=== PATIENT | female | born 1960 | race Caucasian/White ===

== ENCOUNTER 2020-08-15 14:12 | Inpatient (IN) | payer MEDICAID, SELFPAY ==
[2020-08-15 14:18] VITALS: BP 137/81; PULSE 90; RESP 16; TEMP 37.3; O2SAT 100; BMI 18.5
[2020-08-15 15:54] VITALS: BP 144/81; PULSE 78; RESP 19; TEMP 37.2; O2SAT 97
[2020-08-15] MEDS: 0.9 % Sodium Chloride 1,000 ML 999 ML IVCONT (16:13)
[2020-08-15] MEDS: Lidocaine HCl Viscous 2 % 15 ML SOLUTION MUCOUS MEM (16:20)
[2020-08-15] MEDS: Famotidine/PF 20 MG/2 ML VIAL IVPUSH (16:20)
[2020-08-15] MEDS: PHENobarb/Hyoscy/Atropine/Scop 10 ML ELIXIR PO (16:21)
[2020-08-15 16:22] LABS: MANUAL DIFF FLAG NO
[2020-08-15 16:26] LABS: Basophils Absolute Auto 0.1 X10*3/uL (0.0-0.2); Basophils Percent Auto 0.7 % (0-2); Eosinophils Absolute Auto 0.2 X10*3/uL (0.0-0.4); Eosinophils Percent Auto 1.7 % (0-4); Hematocrit 42.7 % (37-47); Hemoglobin 14.1 g/dl (12.0-16.0); Imm Gran Abs Auto 0.03 X10*3/uL (0.00-0.03); Imm Gran Pct Auto 0.2 % (0.0-0.4); Lymphocytes Absolute Auto 3.1 X10*3/uL (1.2-4.9); Lymphocytes Percent Auto 24.2 % (20-40); Mean Corpuscular Hemoglobin 30.1 pg (27.0-33.0); Mean Platelet Volume 10.8 fL (9.4-12.3); Monocytes Absolute Auto 0.7 X10*3/uL (0.1-1.2); Monocytes Percent Auto 5.3 % (2-11); Neutrophils Absolute Auto 8.6 X10*3/uL (2.0-8.3); Neutrophils Percent Auto 67.9 % (45-73); Platelet Count 491 X10*3/uL (160-400); Red Blood Count 4.69 X10*6/uL (4.20-5.50); Red Cell Distribution Width 14.6 % (11.0-16.0); White Blood Count 12.7 X10*3/uL (4.8-10.8)
[2020-08-15 16:29] LABS: Prothrombin Time 12.1 SEC (10.8-13.0)
[2020-08-15 16:53] LABS: Alanine Aminotransferase 8 U/L (0-31); Albumin Level 4.2 g/dL (3.5-5.0); Alkaline Phosphatase 85 U/L (39-117); Anion Gap 14 (12-20); Aspartate Amino Transferase 11 U/L (5-31); Bilirubin Direct < 0.2 mg/dL (0.0-0.5); Bilirubin Total 0.6 mg/dL (0.0-1.0); Blood Urea Nitrogen 10 mg/dL (9-16); Calcium 9.4 mg/dL (8.4-10.2); Carbon Dioxide 27 mmol/L (22-29); Chloride 103 mmol/L (96-108); Creatinine Clr Calc Pharmacy 71.7; Estimated Glomerular Filt Rate > 60; Glucose Random 103 mg/dL (60-115); Potassium 4.3 mmol/l (3.3-5.1); Sodium 140 mmol/L (135-145)
[2020-08-15 16:56] LABS: Troponin-I High Sensitivity < 3.5 ng/L (<3.5-17.0)
[2020-08-15 17:08] LABS: Lipase 379 U/L (8-78)
--- NOTE | 2020-08-15 17:39 | CT_ITS ---
EXAMINATION: CT ABDOMEN AND PELVIS WITH CONTRAST CLINICAL INFORMATION: Pancreatitis COMPARISON: CT abdomen pelvis dated 05/26/2012 TECHNIQUE: Multidetector volumetric images were obtained from the superior aspect of the liver through the pubic symphysis following administration 85 mL ofOmnipaque 350 intravenous contrast. Sagittal and coronal reformatted images were obtained on the technologist's workstation. Oral contrast: No This CT examination was performed using dose optimization techniques as appropriate, variously including the following: *Automated exposure control *Adjustment of mA and/or kV according to patient size (this includes techniques or standardized protocols for targeted exams where dose is matched to indication/reason for exam; i.e. extremities or head) *Use of iterative reconstruction technique DLP: 3 L5 mGy-cm FINDINGS: LUNG BASES: The visualized lung bases are unremarkable. LIVER, GALLBLADDER, AND BILIARY TREE: The liver is normal in size, shape, and attenuation. A small cyst is noted centrally. No focal solid suspicious hepatic lesion or biliary ductal dilatation is present. The gallbladder is unremarkable with no evidence of radiopaque gallstones, gallbladder wall thickening, or obvious pericholecystic inflammatory changes. PANCREAS: Pancreas is edematous and there is peripancreatic fluid in the anterior pararenal space centered near the pancreatic tail. Small amount of fluid is present between the pancreas and the posterior stomach wall with some possible mucosal thickening. No drainable collection or pseudocyst is seen. Findings are compatible with acute pancreatitis. The pancreatic duct is dilated with a maximum of 6.3 mm distally, the duct is tortuous. In the head of the pancreas the duct measures 3.3 mm. An obstructing mass or stone is not seen. SPLEEN: Unremarkable. ADRENAL GLANDS: Unremarkable. KIDNEYS AND URETERS: The kidneys are normal in size, shape, and attenuation. No hydronephrosis, hydroureter, or calculi seen. Tiny renal hypodensities are seen most likely cysts but they're indeterminate because of their small size. No perinephric stranding. BLADDER: Empty and cannot be adequately evaluated. GASTROINTESTINAL TRACT: The small and large bowel are unremarkable. The appendix is unremarkable. ABDOMINAL WALL: No significant hernia is appreciated. LYMPH NODES: Some small retroperitoneal nodes are present but there is no adenopathy. VASCULAR: Calcific atherosclerotic changes present in the infrarenal aorta without aneurysm. PELVIC VISCERA: A retroverted enlarged uterine fibroid is present with dominant 5.4 cm fibroid with diffuse calcification at the fundus. No gross free fluid is present in the pelvis. An abnormal adnexal mass is not present. OSSEOUS STRUCTURES: Unremarkable. CT/CT abdomen pelvis w con IMPRESSION: 1. Acute pancreatitis with edema dilated pancreatic duct and peripancreatic fluid. A drainable collection or pseudocyst is not present. 2. Retroverted uterus with large calcified fundal fibroid 3. Tiny renal hypodensities statistically cysts.
[2020-08-15] MEDS: iohexoL 350 MG/ML 100 ML INFUS..BTL IV (17:55)
--- NOTE | 2020-08-15 18:13 | ECG_ITS ---
Test Reason : UPPER ABDOMINL PAIN Blood Pressure : / mmHG Vent. Rate : 069 BPM Atrial Rate : 069 BPM P-R Int : 156 ms QRS Dur : 076 ms QT Int : 392 ms P-R-T Axes : 082 083 079 degrees QTc Int : 420 ms Normal sinus rhythm Possible Left atrial enlargement Borderline ECG When compared with ECG of 26-AUG-2011 09:18, No significant changes seen Referred By: Gabe Walls Electronically Signed By:LM HODGSON MD
--- NOTE | 2020-08-15 18:13 | ED.ABDPAIN ---
HPI - Abdominal Pain General Chief Complaint: Abdominal Pain Stated Complaint: abd pain Time Seen by Provider: 08/15/20 14:32 Source: patient Mode of arrival: ambulatory Limitations: no limitations History of Present Illness HPI narrative: Patient presents to ED for abdominal pain since yesterday with nausea and vomiting. Patient states abdominal pain has started to improve and her main complaint is nausea. Patient states pain is in the mid gastric area. Patient denies any fever, chills, dysuria, hematuria, flank pain, chest pain, shortness of breath. Related Data Allergies Allergy/AdvReac Type Severity Reaction Status Date / Time No Known Allergies Allergy Verified 08/15/20 14:17 Review of Systems Review of Systems Yes all other systems are reviewed and are negative Constitutional: Reports as per HPI, Reports no additional constitutional complaints and Denies snoring Eyes: Reports as per HPI and Reports no additional eye complaints Reports system reviewed and no additional complaints, except as documented and Reports as per HPI Cardiovascular: Reports as per HPI, Denies chest pain, Denies chest pain at rest, Denies chest pain with activity, Denies Epigastric Pain, Denies rapid heart rate, Denies dyspnea, Denies dyspnea on exertion, Denies orthopnea and Denies paroxysmal nocturnal dyspnea Respiratory: Reports as per HPI, Reports no additional respiratory complaints, Denies change in phlegm color, Denies chest congestion, Denies cough, Denies excessive phlegm production, Denies pain on inspiration, Denies pain with cough, Denies dyspnea, Denies dyspnea on exertion, Denies snoring, Denies stridor and Denies wheezing Gastrointestinal: Reports as per HPI, Reports no additional gastrointestinal complaints, Reports abdominal pain ( mid gastric), Denies belching, Denies melena, Denies hematochezia, Denies tenesmus, Denies change in stool character, Denies coffee ground emesis, Denies constipation, Denies GI cramping, Denies diarrhea, Reports nausea and Reports vomiting Genitourinary: Denies urinary frequency, Denies difficulty voiding, Denies post void dribbling, Denies pelvic pain, Denies urinary incontinence, Denies urinary hesitancy, Denies urinary urgency, Denies vaginal discharge and Denies vaginal dryness Musculoskeletal: Reports no additional musculoskeletal complaints Reports system reviewed and no additional complaints, except as documented and Reports as per HPI Psychiatric: Reports no additional psychiatric complaints and Reports as per HPI Allergic/Immunologic: Denies wheezing Physical Exam Vital Signs: Vital Signs: Vital Signs Temp Pulse Resp BP Pulse Ox 08/15/20 15:54 99 F 78 19 144/81 H 97 08/15/20 14:18 99.1 F 90 16 137/81 100 Body Mass Index 18.5 Const: General: cooperative, healthy appearing, comfortable, no acute distress, well developed, alert and awake Orientation/consciousness: oriented to person, oriented to place, oriented to time and patient oriented x3 HENMT: Head: Yes normal to inspection and Yes No palpable skull fracture present Eyes: General: appearance normal, both eyes and all related structures Neck: Neck: Yes normal visual inspection, Yes full ROM, Yes no lymphadenopathy, Yes no meningeal signs, No positive Brudzinski's sign and No positive Kernig's sign Chest: Chest palpation & inspection: normal inspection of the chest, normal palpation of entire chest wall and no localized rib tenderness Resp: Effort & Inspection: normal respiratory effort, able to speak in complete sentences, normal respiratory pattern, no audible wheezes, respiratory effort not decreased, no grunting, not labored, no nasal flaring, no paradoxical thoraco-abdom movements, no pursed lip breathing and no segmental paradox chest wall movement Auscultation: clear to auscultation bilaterally, no crackles, no rales, no rhonchi and no wheezes Percussion: percussion normal Cardio: Jugular venous distension: no JVD Heart sounds: S1 normal heart sound present and S2 normal heart sound present GI: Inspection: Yes normal to inspection and No abdominal wall ecchymosis Palpation (GI): Soft to palpation, Tenderness to palpation present (GI) ( mid gastric), no guarding and not rigid : General: No CVA tenderness and Yes no CVA tenderness Back/Spine/Pelvis: Back: no CVA tenderness, No CVA tenderness and No back tenderness Skin: General skin exam: no rashes or lesions noted Neuro: General: oriented to person, oriented to place, oriented to time, patient oriented x3, gait normal, no meningeal signs and CN's II-XI intact bilaterally Cranial nerves: Yes CN's II-XII intact bilaterally Extrem: General: Yes normal to inspection and Yes full ROM Psych: Appearance: grossly normal and well kempt Course Course Course Narrative: history and physical exam indicate pancreatitis exacerbation. But due to patient's age she will have troponin EKG. Reevaluation(s) Reevaluation #1: Patient's troponin is normal. Lipase came back slightly elevated. Patient is sent for abdominal CT scan to rule out gallstone pancreatitis. Patient states pain is improving, but just nauseous. Case signed out to [employer] Adrian to follow-up EKG and CT scan results. Time: 18:18 MDM - Abdominal Pain MDM Narrative Medical decision making narrative: Pancreatitis Lab Data Result diagrams: 08/15/20 16:10 08/15/20 16:10 Labs: Lab Results 08/15/20 08/15/20 08/15/20 Range/Units 16:10 16:10 16:10 WBC 12.7 H (4.8-10.8) X10*3/uL RBC 4.69 (4.20-5.50) X10*6/uL Hgb 14.1 (12.0-16.0) g/dl Hct 42.7 (37-47) % MCV 91.0 (80-98) fL MCH 30.1 (27.0-33.0) pg MCHC 33.0 (31.0-35.0) g/dl RDW 14.6 (11.0-16.0) % Plt Count 491 H (160-400) X10*3/uL MPV 10.8 (9.4-12.3) fL Immature Gran % (Auto) 0.2 (0.0-0.4) % Neut % (Auto) 67.9 (45-73) % Lymph % (Auto) 24.2 (20-40) % Benson % (Auto) 5.3 (2-11) % Eos % (Auto) 1.7 (0-4) % Baso % (Auto) 0.7 (0-2) % Lymph # (Auto) 3.1 (1.2-4.9) X10*3/uL Benson # (Auto) 0.7 (0.1-1.2) X10*3/uL Eos # (Auto) 0.2 (0.0-0.4) X10*3/uL Baso # (Auto) 0.1 (0.0-0.2) X10*3/uL Abs Immat Gran (auto) 0.03 (0.00-0.03) X10*3/uL Absolute Neuts (auto) 8.6 H (2.0-8.3) X10*3/uL Absolute Nucleated RBC 0.000 (0.0-0.012) X10*3/uL Nucleated RBC % (auto) 0.0 (0.0-0.2) /100WBC PT 12.1 (10.8-13.0) SEC INR 1.0 (0.9-1.1) Sodium 140 (135-145) mmol/L Potassium 4.3 (3.3-5.1) mmol/l Chloride 103 (96-108) mmol/L Carbon Dioxide 27 (22-29) mmol/L Anion Gap 14 (12-20) BUN 10 (9-16) mg/dL Creatinine 0.56 (0.5-1.4) mg/dL Estim Creat Clear Calc 71.7 Estimated GFR > 60 Random Glucose 103 (60-115) mg/dL Calcium 9.4 (8.4-10.2) mg/dL Total Bilirubin 0.6 (0.0-1.0) mg/dL Direct Bilirubin < 0.2 (0.0-0.5) mg/dL AST 11 (5-31) U/L ALT 8 (0-31) U/L Alkaline Phosphatase 85 (39-117) U/L Troponin I High Sens (<3.5-17.0) ng/L Total Protein 7.0 (6.5-8.0) g/dL Albumin 4.2 (3.5-5.0) g/dL Lipase 379 H (8-78) U/L 08/15/20 Range/Units 16:10 WBC (4.8-10.8) X10*3/uL RBC (4.20-5.50) X10*6/uL Hgb (12.0-16.0) g/dl Hct (37-47) % MCV (80-98) fL MCH (27.0-33.0) pg MCHC (31.0-35.0) g/dl RDW (11.0-16.0) % Plt Count (160-400) X10*3/uL MPV (9.4-12.3) fL Immature Gran % (Auto) (0.0-0.4) % Neut % (Auto) (45-73) % Lymph % (Auto) (20-40) % Benson % (Auto) (2-11) % Eos % (Auto) (0-4) % Baso % (Auto) (0-2) % Lymph # (Auto) (1.2-4.9) X10*3/uL Benson # (Auto) (0.1-1.2) X10*3/uL Eos # (Auto) (0.0-0.4) X10*3/uL Baso # (Auto) (0.0-0.2) X10*3/uL Abs Immat Gran (auto) (0.00-0.03) X10*3/uL Absolute Neuts (auto) (2.0-8.3) X10*3/uL Absolute Nucleated RBC (0.0-0.012) X10*3/uL Nucleated RBC % (auto) (0.0-0.2) /100WBC PT (10.8-13.0) SEC INR (0.9-1.1) Sodium (135-145) mmol/L Potassium (3.3-5.1) mmol/l Chloride (96-108) mmol/L Carbon Dioxide (22-29) mmol/L Anion Gap (12-20) BUN (9-16) mg/dL Creatinine (0.5-1.4) mg/dL Estim Creat Clear Calc Estimated GFR Random Glucose (60-115) mg/dL Calcium (8.4-10.2) mg/dL Total Bilirubin (0.0-1.0) mg/dL Direct Bilirubin (0.0-0.5) mg/dL AST (5-31) U/L ALT (0-31) U/L Alkaline Phosphatase (39-117) U/L Troponin I High Sens < 3.5 (<3.5-17.0) ng/L Total Protein (6.5-8.0) g/dL Albumin (3.5-5.0) g/dL Lipase (8-78) U/L Discharge Plan Discharge Clinical Impression: Pancreatitis [facility] Past Medical History Medical History (Updated 08/15/20 @ 18:18 by RYAN Figueroa) Angioedema, hereditary Pancreatitis Social History Social History Alcohol intake: current Alcohol intake frequency: a few times a month Alcohol type: wine Smoking Status: Current every day smoker Use of substances other than those prescribed or required for medical reasons: No Advance Directives: No Advance Directives Information Provided: No
[2020-08-15] MEDS: ondansetron HCL 4 MG/2 ML VIAL IVPUSH (18:23)
[2020-08-15 18:27] VITALS: BP 155/91; PULSE 70; RESP 17; TEMP 37.2; O2SAT 97
[2020-08-15 21:25] LABS: Triglycerides 152 mg/dL
--- NOTE | 2020-08-15 22:02 | P.HPIM_ITS ---
History of Present Illness Date of Service: 08/15/20 Chief Complaint: Abdominal pain this is a 60-year-old female with history of alcohol abusewho presents to the hospital with abdominal pain. pain is epigastric, radiating to the back, 10, constant, associated with nausea and vomiting. Patient reports that she is usually a daily drinker but stopped drinking a day and her symptoms started yesterday. She has no fever or chills, no diarrhea, no constipation, she does endorse abdominal distension, no urinary symptoms and no lower extremity edema. patient reports an episode of pancreatitis 3 months ago. She received pain meds in the ED with a significant improvement in her symptoms. On arrival to the ED hemodynamically stable with no significant abnormal vitals Labs are significant for WBC count of 12.7, lipase of 379, and triglycerides of 152, abdominal CT showed acute pancreatitis with edema dilated pancreatic duct and peripancreatic fluid. No collection or pseudocyst is noted. Past medical history: Her the teary angioedema, alcohol abuse Surgical history: Mostly orthopedic related including ankle surgery, shoulder surgery Family history: Diabetes Social history: Comes from home, drinks about 2 glasses of wine daily, smokes half a pack per day, and smokes marijuana occasionally. Review of Systems Review of Systems: Yes all other systems are reviewed and are negative Neurologic: Reports system reviewed and no additional complaints, except as documented and Reports as per [facility] Medical History Angioedema, hereditary Pancreatitis Social History Alcohol intake: current Alcohol intake frequency: a few times a month Alcohol type: wine Smoking Status: Current every day smoker Use of substances other than those prescribed or required for medical reasons: No Advance Directives: No Advance Directives Information Provided: No Meds Allergies Allergy/AdvReac Type Severity Reaction Status Date / Time No Known Allergies Allergy Verified 08/15/20 14:17 Home Medications Medication Instructions Recorded Confirmed Type No Known Home Meds 08/15/20 08/15/20 History Physical Exam Vital Signs and Narrative: Vital Signs: Last Vital Signs Temp 99 F 08/15/20 18:27 Pulse 70 08/15/20 18:27 Resp 17 08/15/20 18:27 BP 155/91 H 08/15/20 18:27 Pulse Ox 97 10/29/20 18:27 Body Mass Index 18.5 Const: General: cooperative, comfortable and no acute distress Orientation/consciousness: patient oriented x3 Eyes: General: appearance normal, both eyes and all related structures Pupils: Equal, round and reactive pupils present Resp: Effort & Inspection: normal respiratory effort and able to speak in complete sentences Auscultation: clear to auscultation bilaterally Cardio: Rate: regular rate Rhythm: regular rhythm GI: Other: No tenderness, route no rebound, and no guarding Palpation (GI): Soft to palpation Auscultation: normal bowel sounds Skin: General skin exam: no rashes or lesions noted Neuro: General: patient oriented x3 Cranial nerves: Yes Equal, round and reactive pupils present Cognition (Neuro): normal cognition Extrem: General: Yes normal to inspection and Yes no pedal edema Results Labs Labs: Laboratory Tests 08/15/20 08/15/20 08/15/20 16:10 16:10 16:10 WBC 12.7 H RBC 4.69 Hgb 14.1 Hct 42.7 MCV 91.0 MCH 30.1 MCHC 33.0 RDW 14.6 Plt Count 491 H MPV 10.8 Immature Gran % (Auto) 0.2 Neut % (Auto) 67.9 Lymph % (Auto) 24.2 [place] % (Auto) 5.3 Eos % (Auto) 1.7 Baso % (Auto) 0.7 Lymph # (Auto) 3.1 [place] # (Auto) 0.7 Eos # (Auto) 0.2 Baso # (Auto) 0.1 Abs Immat Gran (auto) 0.03 Absolute Neuts (auto) 8.6 H Absolute Nucleated RBC 0.000 Nucleated RBC % (auto) 0.0 PT 12.1 INR 1.0 Sodium 140 Potassium 4.3 Chloride 103 Carbon Dioxide 27 Anion Gap 14 BUN 10 Creatinine 0.56 Estim Creat Clear Calc 71.7 Estimated GFR > 60 Random Glucose 103 Calcium 9.4 Total Bilirubin 0.6 Direct Bilirubin < 0.2 AST 11 ALT 8 Alkaline Phosphatase 85 Troponin I High Sens Total Protein 7.0 Albumin 4.2 Triglycerides 152 Lipase 379 H 08/15/20 16:10 WBC RBC Hgb Hct MCV MCH MCHC RDW Plt Count MPV Immature Gran % (Auto) Neut % (Auto) Lymph % (Auto) [place] % (Auto) Eos % (Auto) Baso % (Auto) Lymph # (Auto) [place] # (Auto) Eos # (Auto) Baso # (Auto) Abs Immat Gran (auto) Absolute Neuts (auto) Absolute Nucleated RBC Nucleated RBC % (auto) PT INR Sodium Potassium Chloride Carbon Dioxide Anion Gap BUN Creatinine Estim Creat Clear Calc Estimated GFR Random Glucose Calcium Total Bilirubin Direct Bilirubin AST ALT Alkaline Phosphatase Troponin I High Sens < 3.5 Total Protein Albumin Triglycerides Lipase Imaging CT scan - abdomen: Radiologist's impression: IMPRESSION: 1. Acute pancreatitis with edema dilated pancreatic duct and peripancreatic fluid. A drainable collection or pseudocyst is not present. 2. Retroverted uterus with large calcified fundal fibroid 3. Tiny renal hypodensities statistically cysts. Assessment and Plan (1) Pancreatitis: Status: Acute (2) Angioedema, hereditary: Status: Acute (3) Leukocytosis: Status: Acute this is a 60-year-old female with past medical history of alcohol abuse and pancreatitis who presents to the hospital with abdominal pain, found to have acute pancreatitis # epigastric pain, nausea vomiting - secondary to acute pancreatitis - characteristic abdominal pain as well as elevated lipase, CT abdomen positive for pancreatitis Plan: - Treatment of pancreatitis as below - Zofran for nausea vomiting # acute pancreatitis - most likely secondary to alcohol abuse, triglycerides normal, the gallstones unremarkable on the CT scan, with no evidence of gallstones, gallbladder wall thickening or obvious guera cholecystic inflammatory changes - Has elevated lipase, and CT scan positive for pancreatitis plan: - Aggressive IV fluids, clear liquid diet as patient feels significantly better, and feels hungry - IV pain meds - given no elevated LFTs, no CT evidence of gallbladder disease, will hold off on ordering right upper quadrant ultrasound # hereditary angioedema - monitor DVT prophylaxis: Lovenox
[2020-08-16] VITALS (8 sets, daily range): BP systolic 126–155; BP diastolic 75–89; PULSE 66–75; RESP 16–20; TEMP 36.4–36.9; O2SAT 94–100; BMI 18.8
[2020-08-16] MEDS: 0.9 % Sodium Chloride Flush 3 ML SYRINGE IVFLUSH (02:31)
[2020-08-16] MEDS: Lactated Ringers 1,000 ML 200 ML IVCONT ×5 (02:32→23:14)
[2020-08-16] MEDS: Enoxaparin Sodium 40 MG/0.4 ML SYRINGE SUBCUT (02:32)
[2020-08-16 05:33] LABS: MANUAL DIFF FLAG NO
[2020-08-16 06:16] LABS: Basophils Absolute Auto 0.1 X10*3/uL (0.0-0.2); Basophils Percent Auto 0.9 % (0-2); Eosinophils Absolute Auto 0.3 X10*3/uL (0.0-0.4); Eosinophils Percent Auto 2.2 % (0-4); Hematocrit 38.9 % (37-47); Imm Gran Abs Auto 0.03 X10*3/uL (0.00-0.03); Imm Gran Pct Auto 0.3 % (0.0-0.4); Lymphocytes Percent Auto 27.1 % (20-40); Mean Corpuscular HGB Conc 33.4 g/dl (31.0-35.0); Mean Corpuscular Hemoglobin 30.2 pg (27.0-33.0); Mean Corpuscular Volume 90.5 fL (80-98); Mean Platelet Volume 11.4 fL (9.4-12.3); Monocytes Absolute Auto 0.7 X10*3/uL (0.1-1.2); Monocytes Percent Auto 6.3 % (2-11); Neutrophils Absolute Auto 7.1 X10*3/uL (2.0-8.3); Neutrophils Percent Auto 63.2 % (45-73); Platelet Count 457 X10*3/uL (160-400); Red Cell Distribution Width 14.6 % (11.0-16.0); White Blood Count 11.2 X10*3/uL (4.8-10.8)
[2020-08-16 06:27] LABS: Anion Gap 14 (12-20); Blood Urea Nitrogen 8 mg/dL (9-16); Calcium 8.3 mg/dL (8.4-10.2); Carbon Dioxide 23 mmol/L (22-29); Chloride 105 mmol/L (96-108); Creatinine Clr Calc Pharmacy 77.2; Estimated Glomerular Filt Rate > 60; Glucose Random 107 mg/dL (60-115); Potassium 3.8 mmol/l (3.3-5.1); Sodium 138 mmol/L (135-145)
--- NOTE | 2020-08-16 09:51 | MHC.CM.PN ---
FEMALE 60 DX AB PAIN. She lives with family. She is independent. No HCP. Education provided; but pt declined. DP home no services family transport.
--- NOTE | 2020-08-16 12:16 | P.PNIM_ITS ---
Subjective Subjective Date of Service: 08/16/20 Interval History: Pancreatitis probably related to alcohol use Review of Systems Still has abdominal discomfort, but nausea improving Physical Exam Vital Signs: Vital Signs: Vital Signs Temp Pulse Resp BP Pulse Ox 08/16/20 11:50 97.9 F 66 18 142/82 H 98 08/16/20 08:00 98 F 69 19 149/75 H 98 08/16/20 03:25 97.5 F 66 16 152/81 H 98 08/16/20 00:00 97.5 F 67 18 126/75 97 08/15/20 18:27 99 F 70 17 155/91 H 97 08/15/20 15:54 99 F 78 19 144/81 H 97 08/15/20 14:18 99.1 F 90 16 137/81 100 Body Mass Index 18.8 Physical exam: Cvs: rrr, [id number] , no murmur res: clear to auscultation ,no rhonchii or wheezing abd: no rebound or guarding ,abd pain seems improving, bs present. ext pulses present , no cyanosis neuro: axo3 , nonfocal. Objective Data Current Medications Generic Name Dose Route Start Last Admin Trade Name Freq PRN Reason Stop Dose Admin Acetaminophen 650 mg 08/16/20 01:39 Acetaminophen 325 Mg Tablet PO Q6H PRN Pain, Mild (Pain Scale 1-3) Enoxaparin Sodium 40 mg 08/16/20 02:00 08/16/20 02:32 Enoxaparin Sodium 40 Mg/0.4 Ml Syringe SUBCUT 40 mg Q24H EMMIE Administration Lactated Ringer's 1,000 mls @ 200 mls/hr 08/16/20 01:39 08/16/20 07:34 Lr IVCONT 200 mls/hr .Q5H EMMIE Administration Morphine Sulfate 4 mg 08/16/20 01:39 Morphine Sulfate 4 Mg/Ml Cartridge IVPUSH Q4H PRN Pain, Severe (Pain Scale 7-10) Ondansetron HCl 4 mg 08/16/20 01:39 Ondansetron Hcl 4 Mg/2 Ml Vial IVPUSH Q8H PRN Nausea and Vomiting Pharmacy Consult 1 each 08/15/20 21:21 Consult Rx Perform Med Rec MISCELLANE ONCE PRN Consult order Sodium Chloride 3 ml 08/16/20 01:39 08/16/20 07:36 0.9 % Sodium Chloride Flush 3 Ml Syringe IVFLUSH Not Given QSHIFT [facility] Labs CBC & Chem 7: 08/16/20 05:26 08/16/20 05:26 Assessment and Plan (1) Pancreatitis: Status: Acute Assessment and Plan: 60-year-old female with past medical history of alcohol abuse and pancreatitis who presents to the hospital with abdominal pain, found to have acute pancreatitis 1. epigastric pain, nausea vomiting secondary to acute pancreatitis/ characteristic abdominal pain as well as elev ated lipase, CT abdomen positive for pancreatitis Aggressive IV fluids, clear liquid diet as patient feels significantly better, and feels hungry IV pain meds Will try to advance diet. 2. hereditary angioedema - monitor
[2020-08-17] MEDS: Enoxaparin Sodium 40 MG/0.4 ML SYRINGE SUBCUT (02:08)
[2020-08-17 02:53] VITALS: BP 147/89; PULSE 68; RESP 16; TEMP 36.3; O2SAT 99
[2020-08-17] MEDS: Lactated Ringers 1,000 ML 200 ML IVCONT (04:28)
[2020-08-17 08:00] VITALS: BP 146/92; PULSE 64; RESP 16; RESP 18; TEMP 36.8; O2SAT 98
--- NOTE | 2020-08-17 10:18 | PM.DS ---
DS: Providers Provider Date of admission: 08/15/20 22:01 Primary care physician: Leelee Oleary MD DS: Diagnosis Discharge Diagnosis (1) Pancreatitis: Status: Acute DS: Summary Hospital Course Hospital Course: HPI: 60-year-old female with history of alcohol abusewho presents to the hospital with abdominal pain. pain is epigastric, radiating to the back, 10/10, constant, associated with nausea and vomiting. Patient reports that she is usually a daily drinker but stopped drinking a day and her symptoms started yesterday. She has no fever or chills, no diarrhea, no constipation, she does endorse abdominal distension, no urinary symptoms and no lower extremity edema. patient reports an episode of pancreatitis 3 months ago. She received pain meds in the ED with a significant improvement in her symptoms. On arrival to the ED hemodynamically stable with no significant abnormal vitals Labs are significant for WBC count of 12.7, lipase of 379, and triglycerides of 152, abdominal CT showed acute pancreatitis with edema dilated pancreatic duct and peripancreatic fluid. No collection or pseudocyst is noted. Past medical history: Her the teary angioedema, alcohol abuse. Hospital course problem haddad section: Acute pancreatitis : Patient had epigastric discomfort and nausea vomiting . Patient was started on bowel rest, IV pain medication, and symptomatic treatment IV fluid, Zofran . Patient seems improved. Mild leukocytosis is also improving probably related to pancreatitis patient denies any new symptoms. Explained to her in detail probably need to avoid alcohol use, her pancreatitis probably related to alcohol. With above management patient is feeling better and tolerating diet. Patient was told to follow-up with PCP out patiently and monitor CBC for leukocytosis above. Above management discussed with the patient in detail length she understand and in agreement with the above plan, time spent 50 minutes and 50% time spent on counseling. Significant findings: As above. Procedures performed: None. Treatment and response: As above. Complications: None. Time Spent with Patient Time attestation: Total time spent providing and/or coordinating discharge services: Physical Exam Vital Signs: Vital Signs: Vital Signs Temp Pulse Resp BP Pulse Ox 08/17/20 08:00 98.3 F 64 18 146/92 H 98 08/17/20 02:53 97.4 F 68 16 147/89 H 99 08/16/20 23:31 98.5 F 70 16 140/81 H 99 08/16/20 19:28 97.5 F 67 18 153/89 H 96 08/16/20 15:38 97.8 F 66 18 155/77 H 100 08/16/20 12:00 97.6 F 75 20 149/82 H 94 08/16/20 11:50 97.9 F 66 18 142/82 H 98 Body Mass Index 18.8 Physical exam: Cvs: rrr, [id number] , no murmur res: clear to auscultation ,no rhonchii or wheezing abd: no rebound or guarding ,nt, bs present. ext pulses present , no cyanosis neuro: axo3 , nonfocal. Discharge Plan Discharge Patient Disposition: Home, Self-Care Referrals: Leelee Oleary MD [Primary Care Provider] - Discharge Medications: No Action No Known Home Meds RF: 0 Discharge Orders: Discharge Order (Routine); Ordered 08/17/20 Ordered By: Emilia De Anda Diet: advance to your usual diet Activity on Discharge: As tolerated Visit Report Forms: Patient Portal Discharge page Care Plan Goals: Patient was found to have pancreatitis probably related to alcohol use. and came with epigastric discomfort and nausea vomiting-with hydration and supportive care patient is improving tolerating diet going home. Patient is to follow-up with her PCP and monitor CBC with PCP because of mild it leukocytosis. Further management as per PCP. Patient was told to avoid alcohol use. Health Concerns: As above. Plan of Treatment: As above.
--- NOTE | 2020-08-17 10:44 | MHC.CM.PN ---
PATIENT IS DISCHARGED HOME WITH NO NEED FOR SERVICES. RN AWARE OF PLAN.
== END 2020-08-17 11:29 | disposition home or self-care (01) | DRG 282 ==
LOC: HO.ED 21:55 → HO.S3 22:44
PROVIDERS: Nurse Practitioner Primary Care; Physician Assistant; Admitting Provider Internal Medicine; Emergency Provider Internal Medicine; PCP Internal Medicine; Visit Provider Internal Medicine
DX: K85.20 Alcohol induced acute pancreatitis without necrosis or infection (principal); D84.1 Defects in the complement system; D72.829 Elevated white blood cell count, unspecified; F10.10 Alcohol abuse, uncomplicated; F17.210 Nicotine dependence, cigarettes, uncomplicated; Z71.6 Tobacco abuse counseling
CPT/HCPCS: 36415; 74177; 80048; 80053; 80076; 83690; 84478; 84484; 85025; 85610; 93005; 96361; 96374; 96375; 99285; J1650; J2405; Q9967